=== PATIENT | female | born 1930 | race Caucasian/White ===

== ENCOUNTER → 2017-09-27 | Outpatient (CLI) | payer OTHER ==
[~2017-09-27] MED LIST: ATOR10TA PO; CALC-141 PO; CALCITONIN SPRAY; CLOP75TA52 PO; DILT120T3 PO; DILT180C53 PO; FERR325T18 PO; LEVO750T6 PO; LOSA50TA6 PO; NICO-485 TD; WARFARIN
== END | disposition home or self-care (01) ==
LOC: CFH 14:27
PROVIDERS: ATTEND Internal Medicine
DX: J90 Pleural effusion, not elsewhere classified (principal); J98.11 Atelectasis
CPT/HCPCS: 71046

== ENCOUNTER → 2017-12-04 | Outpatient (CLI) | payer MEDICARE, OTHER | LOC: CVU 13:14 | PROVIDERS: ATTEND Nurse Practitioner Family | DX: I65.23 Occlusion and stenosis of bilateral carotid arteries (principal); I77.4 Celiac artery compression syndrome; I70.0 Atherosclerosis of aorta; I70.202 Unspecified atherosclerosis of native arteries of extremities, left leg; E78.5 Hyperlipidemia, unspecified; I11.0 Hypertensive heart disease with heart failure; I50.9 Heart failure, unspecified; I48.91 Unspecified atrial fibrillation; Z89.511 Acquired absence of right leg below knee | CPT/HCPCS: 93880; 93926; 93978 ==

== ENCOUNTER 2018-08-29 15:50 | Inpatient (IN) | payer MEDICARE, OTHER ==
[~2018-08-29] VITALS: Ht 157.5 cm; Wt 52.1 kg
[~2018-08-29 15:50] MED LIST changes: -LOSA50TA6 PO; +LOSA50TA7 PO
[2018-08-29 16:45] LABS: BASOPHILS % (AUTO) 0 % (0-1); EOSINOPHILS # (AUTO) 0.08 x10^3/uL (0-0.4); EOSINOPHILS % (AUTO) 1 % (1-7); LYMPHOCYTES # (AUTO) 1.46 x10^3/uL (1-3.4); LYMPHOCYTES % (AUTO) 15 % (22-44); MD NO; MEAN CORPUSCULAR HEMOGLOBIN 28.9 pg (27.0-34.8); MEAN CORPUSCULAR HGB CONC 32.7 g/dL (32.4-35.8); MEAN CORPUSCULAR VOLUME 88.5 fL (80-100); MEAN PLATELET VOLUME 7.5 fL (7.4-10.4); MONOCYTES # (AUTO) 0.58 x10^3/uL (0.2-0.8); MONOCYTES % (AUTO) 6 % (2-9); NEUTROPHILS # (AUTO) 7.46 x10^3/uL (1.8-6.8); NEUTROPHILS % (AUTO) 78 % (42-75); PLATELET COUNT 535 x10^3/uL (130-400); RED BLOOD COUNT 4.67 x10^6/uL (3.82-5.3); RED CELL DISTRIBUTION WIDTH 17.4 % (9.6-15.2)
[2018-08-29 16:53] LABS: ALANINE AMINOTRANSFERASE 32 U/L (12-78); ALBUMIN 2.9 g/dL (3.4-5.0); ANION GAP 13 mmol/L (5-15); CALCIUM 8.8 mg/dL (8.5-10.1); CHLORIDE 107 mmol/L (98-107); CREATININE 1.18 mg/dL (0.55-1.02)
[2018-08-29 16:57] LABS: ALKALINE PHOSPHATASE 154 U/L (45-117); BILIRUBIN,TOTAL 0.7 mg/dL (0.2-1.0); TOTAL PROTEIN 8.2 g/dL (6.4-8.2); TROPONIN I < 0.015 ng/mL (0.000-0.045)
[2018-08-29] MEDS ORDERED: METO25TA35 PO (17:17)
[2018-08-29] MEDS ORDERED: CALC3.7S5 NS (17:17)
[2018-08-29] MEDS ORDERED: GABA300C10 PO (17:17)
[2018-08-29] MEDS ORDERED: LOSA25TA25 PO (17:17)
[2018-08-29] MEDS ORDERED: MULT-464 PO (17:17)
[2018-08-29] MEDS ORDERED: APIX5TAB PO (17:17)
[2018-08-29] MEDS ORDERED: METOCLOPRAMIDE 5 MG/ML, 2ML ONE (17:22)
[2018-08-29] MEDS: METOPROLOL 1 MG/ML, 5ML IVPush PRN ×2 (17:31→19:02)
[2018-08-29] MEDS ORDERED: LIDOCAINE-MPF 1%, 5ML ONE ×2 (18:04)
[2018-08-29] MEDS ORDERED: ACETAMINOPHEN 325 MG TABLET PO PRN (18:30)
[2018-08-29] MEDS ORDERED: DOCUSATE 100 MG CAPSULE PO PRN (18:30)
[2018-08-29] MEDS ORDERED: LABETALOL 5MG/ML, 20ML IVPush PRN (18:30)
[2018-08-29] MEDS ORDERED: ENALAPRILAT 1.25 MG/ML, 2ML IVPush PRN (18:30)
[2018-08-29] MEDS ORDERED: ONDANSETRON ODT 4 MG PO PRN (18:30)
[2018-08-29] MEDS ORDERED: BISACODYL 10 MG SUPP PR PRN (18:30)
[2018-08-29] MEDS ORDERED: ONDANSETRON 2MG/ML, 2ML IVPush PRN (18:30)
[2018-08-29] MEDS ORDERED: METOPROLOL 1 MG/ML, 5ML ONE (18:56)
[2018-08-29] MEDS ORDERED: SODIUM CHLORIDE FLUSH 10ML SYR IVF PRN (19:00)
[2018-08-29] MEDS: NICOTINE 7 MG/24 HR PATCH.TD24 TD SCH (21:30)
[2018-08-29 22:12] VITALS: BP 108/68
[2018-08-29] MEDS: METOPROLOL TARTRATE 25 MG TABLET PO SCH (22:22)
[2018-08-29] MEDS: GABAPENTIN 300 MG CAPSULE PO SCH (22:22)
[2018-08-29] MEDS: ENOXAPARIN 40 MG/0.4 ML SQ SCH (22:22)
[2018-08-29] MEDS: ATORVASTATIN 20 MG TABLET PO SCH (22:22)
[2018-08-30 01:10] VITALS: BP 93/61
[2018-08-30 05:22] LABS: ANION GAP 10 mmol/L (5-15); CALCIUM 8.1 mg/dL (8.5-10.1); CHLORIDE 110 mmol/L (98-107); CREATININE 1.03 mg/dL (0.55-1.02)
[2018-08-30 05:27] LABS: BASOPHILS # (AUTO) 0.03 x10^3/uL (0-0.1); BASOPHILS % (AUTO) 0 % (0-1); EOSINOPHILS % (AUTO) 1 % (1-7); HCT (SEDRATE) 32.7 % (34.6-47.8); LYMPHOCYTES # (AUTO) 1.36 x10^3/uL (1-3.4); LYMPHOCYTES % (AUTO) 15 % (22-44); MD NO; MEAN CORPUSCULAR HEMOGLOBIN 28.5 pg (27.0-34.8); MEAN CORPUSCULAR HGB CONC 32.6 g/dL (32.4-35.8); MEAN CORPUSCULAR VOLUME 87.4 fL (80-100); MEAN PLATELET VOLUME 7.5 fL (7.4-10.4); MONOCYTES # (AUTO) 0.95 x10^3/uL (0.2-0.8); MONOCYTES % (AUTO) 10 % (2-9); NEUTROPHILS # (AUTO) 6.67 x10^3/uL (1.8-6.8); NEUTROPHILS % (AUTO) 73 % (42-75); PLATELET COUNT 423 x10^3/uL (130-400); RED CELL DISTRIBUTION WIDTH 17.4 % (9.6-15.2)
[2018-08-30 05:33] LABS: INTERNATIONAL NORMALIZED RATIO 1.47 (0.93-1.1); PROTHROMBIN TIME 15.4 Seconds (9.6-11.5)
[2018-08-30 07:17] LABS: RAPID INFLUENZA A Negative (Negative); RAPID INFLUENZA B Negative (Negative)
[2018-08-30 07:35] VITALS: BP 103/53
[2018-08-30] MEDS ORDERED: LOSARTAN 25MG TABLET PO SCH (09:00)
[2018-08-30] MEDS: CALCITONIN NASAL 200 UNITS/0.09ML, 3.7ML NAS SCH (09:00)
[2018-08-30] MEDS: SENNA/DOCUSATE TABLET PO SCH (09:00)
[2018-08-30] MEDS ORDERED: LIDOCAINE-MPF 1%, 5ML ONE (11:19)
[2018-08-30] MEDS: MULTIVITAMIN 1 TABLET PO SCH (12:54)
[2018-08-30] MEDS: METOPROLOL TARTRATE 25 MG TABLET PO SCH ×2 (12:54→20:18)
[2018-08-30 13:00] VITALS: BP 117/64
[2018-08-30 19:31] VITALS: BP 111/74
[2018-08-30] MEDS: NICOTINE 7 MG/24 HR PATCH.TD24 TD SCH (20:18)
[2018-08-30] MEDS: GABAPENTIN 300 MG CAPSULE PO SCH (20:18)
[2018-08-30] MEDS: ATORVASTATIN 20 MG TABLET PO SCH (20:18)
[2018-08-30] MEDS: ENOXAPARIN 40 MG/0.4 ML SQ SCH (20:18)
[2018-08-31 02:34] VITALS: BP_SYST 76; BP_SYST 82; BP_DIAS 41; BP_DIAS 49
[2018-08-31] MEDS ORDERED: SODIUM CHLORIDE 0.9%, 500ML IVBOLUS ONE (03:00)
[2018-08-31 03:19] VITALS: BP 84/50
[2018-08-31 05:09] VITALS: BP 88/53
[2018-08-31 05:43] LABS: BASOPHILS # (AUTO) 0.07 x10^3/uL (0-0.1); BASOPHILS % (AUTO) 1 % (0-1); EOSINOPHILS # (AUTO) 0.03 x10^3/uL (0-0.4); EOSINOPHILS % (AUTO) 0 % (1-7); LYMPHOCYTES # (AUTO) 1.86 x10^3/uL (1-3.4); LYMPHOCYTES % (AUTO) 15 % (22-44); MD NO; MEAN CORPUSCULAR HEMOGLOBIN 28.7 pg (27.0-34.8); MEAN CORPUSCULAR HGB CONC 32.7 g/dL (32.4-35.8); MEAN CORPUSCULAR VOLUME 87.9 fL (80-100); MEAN PLATELET VOLUME 7.9 fL (7.4-10.4); MONOCYTES # (AUTO) 1.22 x10^3/uL (0.2-0.8); MONOCYTES % (AUTO) 10 % (2-9); NEUTROPHILS # (AUTO) 8.96 x10^3/uL (1.8-6.8); NEUTROPHILS % (AUTO) 74 % (42-75); PLATELET COUNT 420 x10^3/uL (130-400); RED BLOOD COUNT 3.35 x10^6/uL (3.82-5.3); RED CELL DISTRIBUTION WIDTH 17.4 % (9.6-15.2)
[2018-08-31 05:57] LABS: CALCIUM 7.9 mg/dL (8.5-10.1); CHLORIDE 112 mmol/L (98-107)
[2018-08-31 06:00] LABS: ALBUMIN 1.9 g/dL (3.4-5.0); ANION GAP 11 mmol/L (5-15); CREATININE 1.12 mg/dL (0.55-1.02)
[2018-08-31 07:15] VITALS: BP 88/53
[2018-08-31 08:29] VITALS: BP 103/68
[2018-08-31] MEDS: MULTIVITAMIN 1 TABLET PO SCH (08:30)
[2018-08-31] MEDS: SENNA/DOCUSATE TABLET PO SCH (08:30)
[2018-08-31] MEDS: CALCITONIN NASAL 200 UNITS/0.09ML, 3.7ML NAS SCH (08:31)
[2018-08-31] MEDS ORDERED: METOPROLOL TARTRATE 25 MG TABLET PO SCH (09:00)
[2018-08-31 13:08] LABS: OCCULT BLOOD NEGATIVE (NEGATIVE)
[2018-08-31] MEDS ORDERED: ENOXAPARIN 30 MG/0.3 ML SQ SCH (18:30)
== END 2018-08-31 15:00 | disposition home or self-care (01) | DRG 291 ==
LOC: ED 18:09 → EDIP 18:31 → 5SO 20:45 → DCLOUNGE 08-31 14:45
PROVIDERS: ADMIT Internal Medicine; ATTEND Internal Medicine
PROC: 0W993ZZ Drainage of Right Pleural Cavity, Percutaneous Approach (ICD-10-PCS; principal; 2018-08-30)
DX: I11.0 Hypertensive heart disease with heart failure (principal); J96.21 Acute and chronic respiratory failure with hypoxia; N17.9 Acute kidney failure, unspecified; E87.2 Acidosis; I50.32 Chronic diastolic (congestive) heart failure; F17.210 Nicotine dependence, cigarettes, uncomplicated; I25.10 Atherosclerotic heart disease of native coronary artery without angina pectoris; I48.2 Chronic atrial fibrillation; I73.9 Peripheral vascular disease, unspecified; J44.9 Chronic obstructive pulmonary disease, unspecified; M81.0 Age-related osteoporosis without current pathological fracture; Z80.9 Family history of malignant neoplasm, unspecified; Z82.3 Family history of stroke; Z89.419 Acquired absence of unspecified great toe; Z89.511 Acquired absence of right leg below knee; Z79.02 Long term (current) use of antithrombotics/antiplatelets; Z90.49 Acquired absence of other specified parts of digestive tract; Z98.41 Cataract extraction status, right eye; Z98.42 Cataract extraction status, left eye; Z88.8 Allergy status to other drugs, medicaments and biological substances
CPT/HCPCS: 32555; 36415; 71045; 80048; 80053; 82040; 82150; 82272; 82945; 83605; 83615; 83880; 83986; 84157; 84484; 85014; 85018; 85025; 85610; 85651; 85730; 87040; 87070; 87102; 87205; 87400; 88112; 88305; 89051; 93005; 93306; 96374; 96375; 99291; G0378; J1650; J7040

== ENCOUNTER 2018-11-07 14:50 | Inpatient (IN) | payer MEDICARE, OTHER ==
[~2018-11-07] VITALS: Ht 157.5 cm; Wt 51.8 kg
[~2018-11-07 14:50] MED LIST changes: +APIX5TAB PO; +CALC3.7S5 NS; +GABA300C10 PO; +LOSA25TA25 PO; +LOSA50TA14 PO; -LOSA50TA7 PO; +METO25TA35 PO; +MULT-464 PO
--- NOTE | 2018-11-07 15:10 | NUR ---
DR ZUNIGA BS FOR EXAM. PER DAUGHTER, PT HAS SOB, HAS BEEN SLEEPING MORE THAN NORMAL, SIMILAR SX 2 MONTHS AGO
[2018-11-07] MEDS ORDERED: ATOR40TA PO (15:22)
--- NOTE | 2018-11-07 15:29 | NUR ---
LABS DRAWN, INCLUDING CULTURES.
[2018-11-07] MEDS ORDERED: METOPROLOL 1 MG/ML, 5ML IVPush ONE (15:30)
--- NOTE | 2018-11-07 15:44 | NUR ---
XR AT BS
[2018-11-07] MEDS ORDERED: METOPROLOL 1 MG/ML, 5ML ONE (15:47)
[2018-11-07 15:54] LABS: ALANINE AMINOTRANSFERASE 19 U/L (12-78); ALBUMIN 2.7 g/dL (3.4-5.0); ANION GAP 11 mmol/L (5-15); CHLORIDE 107 mmol/L (98-107); CREATININE 1.33 mg/dL (0.55-1.02)
[2018-11-07 15:58] LABS: ALKALINE PHOSPHATASE 126 U/L (45-117); BILIRUBIN,TOTAL 1.1 mg/dL (0.2-1.0); TOTAL PROTEIN 7.5 g/dL (6.4-8.2); TROPONIN I 0.031 ng/mL (0.000-0.045)
--- NOTE | 2018-11-07 16:05 | NUR ---
BEAR WARMER GIVEN TO PT. O2 2LNC APPLIED FOR LOW SATURATION; WILL TITRATE.
--- NOTE | 2018-11-07 16:13 | NUR ---
LOPRESSOR GIVEN PER EMAR. DR GREGG IN ROOM. PT'S HR VARYIN-140, A-FIB.
[2018-11-07 16:14] LABS: MEAN CORPUSCULAR HEMOGLOBIN 25.5 pg (27.0-34.8); MEAN CORPUSCULAR HGB CONC 30.4 g/dL (32.4-35.8); MEAN CORPUSCULAR VOLUME 83.9 fL (80-100); MEAN PLATELET VOLUME 8.2 fL (7.4-10.4); PLATELET COUNT 322 x10^3/uL (130-400); RED BLOOD COUNT 5.36 x10^6/uL (3.82-5.3); RED CELL DISTRIBUTION WIDTH 25.4 % (9.6-15.2)
[2018-11-07] MEDS ORDERED: FUROSEMIDE 40 MG/4 ML IV ONE (16:30)
[2018-11-07] MEDS ORDERED: AZITHROMYCIN 500 MG in SODIUM CHLORIDE 0.9% 250 ML IV ONE (16:30)
[2018-11-07] MEDS ORDERED: CEFTRIAXONE PMX 1GM/50ML 50 ML IV ONE (16:30)
[2018-11-07 16:46] LABS: BASOPHILS # (AUTO) 0.04 x10^3/uL (0-0.1); BASOPHILS % (AUTO) 1 % (0-1); EOSINOPHILS # (AUTO) 0.06 x10^3/uL (0-0.4); EOSINOPHILS % (AUTO) 1 % (1-7); LYMPHOCYTES # (AUTO) 1.56 x10^3/uL (1-3.4); LYMPHOCYTES % (AUTO) 23 % (22-44); MD MORPH REVIEW ONLY; MONOCYTES # (AUTO) 0.56 x10^3/uL (0.2-0.8); MONOCYTES % (AUTO) 8 % (2-9); NEUTROPHILS # (AUTO) 4.56 x10^3/uL (1.8-6.8); NEUTROPHILS % (AUTO) 67 % (42-75)
[2018-11-07 16:47] LABS: ANISOCYTOSIS 2+
[2018-11-07 16:48] LABS: MICROCYTOSIS 1+
[2018-11-07 16:49] LABS: OVALOCYTES 1+; POLYCHROMASIA 1+
[2018-11-07 16:50] LABS: ECHINOCYTES 1+
[2018-11-07 16:51] LABS: <PLATELET ESTIMATE> ADEQUATE; <PLT MORPHOLOGY> NORMAL PLT MORPH
--- NOTE | 2018-11-07 16:51 | NUR ---
PT REPORT TO BREAK RN: INES Armijo PT CARE TRANSFERRED
[2018-11-07] MEDS ORDERED: FUROSEMIDE 40 MG/4 ML ONE (16:58)
[2018-11-07] MEDS ORDERED: CEFTRIAXONE PMX 1GM/50ML 50 ML ONE (16:58)
--- NOTE | 2018-11-07 17:15 | NUR ---
LUNCH BREAK NOTE: PT RESTING IN BED IN NAD. ANTIBIOTICS STARTED AFTERT BLOOD CULTRURES X 2 WERE DRAWN.
--- NOTE | 2018-11-07 17:27 | NUR ---
PT REPORT FROM [facility]. PT CARE TO BE ASSUMED.
[2018-11-07] MEDS ORDERED: BISACODYL 10 MG SUPP PR PRN (17:30)
[2018-11-07] MEDS ORDERED: ENALAPRILAT 1.25 MG/ML, 2ML IVPush PRN (17:30)
[2018-11-07] MEDS ORDERED: ACETAMINOPHEN 325 MG TABLET PO PRN (17:30)
[2018-11-07] MEDS ORDERED: hydrALAzine 20 MG/ML, 1ML IVPush PRN (17:30)
[2018-11-07] MEDS ORDERED: DOCUSATE 100 MG CAPSULE PO PRN (17:30)
[2018-11-07] MEDS ORDERED: DIGOXIN 0.25 MG/ML, 2ML IVPush ONE (17:30)
[2018-11-07] MEDS ORDERED: ONDANSETRON ODT 4 MG PO PRN (17:30)
--- NOTE | 2018-11-07 18:23 | NUR ---
VOIDED INTO BEDPAN. SPECIMEN COLLECTED.
--- NOTE | 2018-11-07 19:29 | NUR ---
NEW IV LOCK INITIATED: LT WRIST 22G. ZITHROMAX HUNG, INFUSING AT 250ML/HR VIA PUMP. RT IV SITE WILL BE DC'D
--- NOTE | 2018-11-07 19:38 | NUR ---
CALLED RECEIVING UNIT - [facility] NOT CURRENTLY AVAILABLE.
--- NOTE | 2018-11-07 19:48 | NUR ---
PT REPORT TO [facility] EL[facility]AB[facility] FOR ROOM 502. WILL CONSULT ERP RE: DIG ORDER.
[2018-11-07] MEDS ORDERED: DIGOXIN 0.25 MG/ML, 2ML ONE (19:52)
[2018-11-07 20:15] VITALS: BP 110/75
[2018-11-07] MEDS: ONDANSETRON 2MG/ML, 2ML IVPush PRN (20:23)
[2018-11-07] MEDS ORDERED: PLEASE ENTER HEIGHT AND WEIGHT MC SCH (20:30)
[2018-11-07] MEDS ORDERED: METOPROLOL TARTRATE 25 MG TABLET PO SCH (21:00)
[2018-11-07 21:59] LABS: TROPONIN I 0.036 ng/mL (0.000-0.045)
[2018-11-07] MEDS: APIXABAN 2.5 MG TABLET PO SCH (22:23)
[2018-11-07] MEDS: GABAPENTIN 300 MG CAPSULE PO SCH (22:23)
[2018-11-07] MEDS: METOPROLOL TARTRATE 25 MG TABLET PO SCH (22:24)
[2018-11-08] VITALS (11 sets, daily range): BP systolic 79–125; BP diastolic 42–67
[2018-11-08 03:53] LABS: MEAN CORPUSCULAR HGB CONC 31.2 g/dL (32.4-35.8); MEAN CORPUSCULAR VOLUME 83.3 fL (80-100); MEAN PLATELET VOLUME 8.2 fL (7.4-10.4); PLATELET COUNT 259 x10^3/uL (130-400); RED BLOOD COUNT 4.59 x10^6/uL (3.82-5.3); RED CELL DISTRIBUTION WIDTH 24.4 % (9.6-15.2)
[2018-11-08 03:57] LABS: ALBUMIN 2.3 g/dL (3.4-5.0); ANION GAP 7 mmol/L (5-15); CALCIUM 8.5 mg/dL (8.5-10.1); CHLORIDE 110 mmol/L (98-107)
[2018-11-08 04:03] LABS: ALANINE AMINOTRANSFERASE 14 U/L (12-78); ALKALINE PHOSPHATASE 94 U/L (45-117); BILIRUBIN,TOTAL 0.7 mg/dL (0.2-1.0); CHOL/HDL RATIO 2.1; CHOLESTEROL, TOTAL 77 mg/dL (140-239); CREATININE 1.13 mg/dL (0.55-1.02); HDL CHOL % 48 % (28-40); HDL CHOLESTEROL (DIRECT) 37 mg/dL (40-60); LDL CHOLESTEROL,CALCULATED 26 mg/dL (54-169); LDL/HDL RATIO 0.7 (0.5-3.0); TOTAL PROTEIN 6.2 g/dL (6.4-8.2); TRIGLYCERIDES 69 mg/dL (50-200); TROPONIN I 0.048 ng/mL (0.000-0.045); VLDL CHOLESTEROL 14 mg/dL (0-25)
[2018-11-08 04:50] LABS: BASOPHILS # (AUTO) 0.02 x10^3/uL (0-0.1); BASOPHILS % (AUTO) 0 % (0-1); EOSINOPHILS # (AUTO) 0.02 x10^3/uL (0-0.4); EOSINOPHILS % (AUTO) 0 % (1-7); LYMPHOCYTES # (AUTO) 1.06 x10^3/uL (1-3.4); LYMPHOCYTES % (AUTO) 20 % (22-44); MD MORPH REVIEW ONLY; MONOCYTES # (AUTO) 0.43 x10^3/uL (0.2-0.8); MONOCYTES % (AUTO) 8 % (2-9); NEUTROPHILS # (AUTO) 3.77 x10^3/uL (1.8-6.8); NEUTROPHILS % (AUTO) 71 % (42-75)
[2018-11-08 04:52] LABS: ANISOCYTOSIS 2+; ECHINOCYTES 1+; MICROCYTOSIS 1+; OVALOCYTES 1+; POLYCHROMASIA 1+
[2018-11-08 04:53] LABS: <PLATELET ESTIMATE> ADEQUATE; <PLT MORPHOLOGY> NORMAL PLT MORPH
[2018-11-08] MEDS: SENNA/DOCUSATE TABLET PO SCH (08:48)
[2018-11-08] MEDS: METOPROLOL TARTRATE 25 MG TABLET PO SCH ×3 (08:50→21:00)
[2018-11-08] MEDS: MULTIVITAMINS/MINERALS TABLET PO SCH (08:50)
[2018-11-08] MEDS: CLOPIDOGREL 75 MG TABLET PO SCH ×2 (08:51→09:00)
[2018-11-08] MEDS: APIXABAN 2.5 MG TABLET PO SCH (09:00)
[2018-11-08] MEDS ORDERED: LIDOCAINE-MPF 1%, 5ML ONE (09:05)
[2018-11-08] MEDS: ONDANSETRON 2MG/ML, 2ML IVPush PRN (10:38)
[2018-11-08] MEDS ORDERED: MORPHINE SULFATE 4 MG/ML, 1ML IVPush PRN (11:00)
[2018-11-08] MEDS: CALCITONIN NASAL 200 UNITS/0.09ML, 3.7ML NAS SCH (11:26)
[2018-11-08] MEDS: AZITHROMYCIN 500 MG in SODIUM CHLORIDE 0.9% 250 ML IV SCH (12:37)
[2018-11-08] MEDS: CEFTRIAXONE PMX 1GM/50ML 50 ML IV SCH (13:51)
[2018-11-08 15:21] LABS: INTERNATIONAL NORMALIZED RATIO 1.27 (0.93-1.1); PROTHROMBIN TIME 13.3 Seconds (9.6-11.5)
[2018-11-08] MEDS: ATORVASTATIN 40 MG TABLET PO SCH (20:35)
[2018-11-08] MEDS: GABAPENTIN 300 MG CAPSULE PO SCH (20:35)
[2018-11-08] MEDS ORDERED: SODIUM CHLORIDE 0.9%, 500ML IVBOLUS ONE (22:00)
[2018-11-08] MEDS ORDERED: SODIUM CHLORIDE 0.9%, 250ML IVBOLUS ONE (22:30)
[2018-11-09 00:46] VITALS: BP 108/68
[2018-11-09 03:14] LABS: ANION GAP 6 mmol/L (5-15); CALCIUM 7.8 mg/dL (8.5-10.1); CHLORIDE 112 mmol/L (98-107)
[2018-11-09 03:17] LABS: ALANINE AMINOTRANSFERASE 11 U/L (12-78); ALKALINE PHOSPHATASE 90 U/L (45-117); BILIRUBIN,TOTAL 0.6 mg/dL (0.2-1.0); CREATININE 1.19 mg/dL (0.55-1.02); TOTAL PROTEIN 5.4 g/dL (6.4-8.2)
[2018-11-09 03:18] LABS: MEAN CORPUSCULAR HEMOGLOBIN 25.4 pg (27.0-34.8); MEAN CORPUSCULAR VOLUME 84.8 fL (80-100); MEAN PLATELET VOLUME 8.1 fL (7.4-10.4); PLATELET COUNT 255 x10^3/uL (130-400); RED CELL DISTRIBUTION WIDTH 24.1 % (9.6-15.2)
[2018-11-09 03:20] LABS: MEAN CORPUSCULAR HGB CONC 29.9 g/dL (32.4-35.8)
[2018-11-09 03:43] LABS: BASOPHILS # (AUTO) 0.07 x10^3/uL (0-0.1); BASOPHILS % (AUTO) 1 % (0-1); EOSINOPHILS # (AUTO) 0.03 x10^3/uL (0-0.4); EOSINOPHILS % (AUTO) 0 % (1-7); LYMPHOCYTES # (AUTO) 1.15 x10^3/uL (1-3.4); LYMPHOCYTES % (AUTO) 15 % (22-44); MD SCAN; MONOCYTES # (AUTO) 0.74 x10^3/uL (0.2-0.8); MONOCYTES % (AUTO) 10 % (2-9); NEUTROPHILS # (AUTO) 5.68 x10^3/uL (1.8-6.8); NEUTROPHILS % (AUTO) 74 % (42-75)
[2018-11-09 06:26] VITALS: BP 124/66
[2018-11-09] MEDS: CALCITONIN NASAL 200 UNITS/0.09ML, 3.7ML NAS SCH (08:42)
[2018-11-09] MEDS: FUROSEMIDE 40 MG/4 ML IV SCH (08:43)
[2018-11-09] MEDS: CLOPIDOGREL 75 MG TABLET PO SCH (08:44)
[2018-11-09] MEDS: SENNA/DOCUSATE TABLET PO SCH (08:44)
[2018-11-09] MEDS: MULTIVITAMINS/MINERALS TABLET PO SCH (08:44)
[2018-11-09] MEDS: METOPROLOL TARTRATE 25 MG TABLET PO SCH ×3 (08:45→20:32)
[2018-11-09] MEDS: AZITHROMYCIN 500 MG in SODIUM CHLORIDE 0.9% 250 ML IV SCH (11:41)
[2018-11-09 13:24] VITALS: BP 101/63
[2018-11-09] MEDS: CEFTRIAXONE PMX 1GM/50ML 50 ML IV SCH (13:28)
[2018-11-09 19:04] VITALS: BP 112/60
[2018-11-09] MEDS: GABAPENTIN 300 MG CAPSULE PO SCH (20:32)
[2018-11-09] MEDS: ATORVASTATIN 40 MG TABLET PO SCH (20:32)
[2018-11-10 00:18] VITALS: BP 124/58
[2018-11-10 05:21] LABS: CHLORIDE 111 mmol/L (98-107)
[2018-11-10 05:37] LABS: ALANINE AMINOTRANSFERASE 13 U/L (12-78); ALBUMIN 2.2 g/dL (3.4-5.0); ALKALINE PHOSPHATASE 85 U/L (45-117); ANION GAP 3 mmol/L (5-15); BILIRUBIN,TOTAL 0.9 mg/dL (0.2-1.0); CALCIUM 8.1 mg/dL (8.5-10.1); TOTAL PROTEIN 6.2 g/dL (6.4-8.2)
[2018-11-10 07:26] VITALS: BP 135/73
[2018-11-10] MEDS: FUROSEMIDE 40 MG/4 ML IV SCH ×3 (08:32→21:07)
[2018-11-10] MEDS: METOPROLOL TARTRATE 25 MG TABLET PO SCH ×3 (08:32→21:08)
[2018-11-10] MEDS: CALCITONIN NASAL 200 UNITS/0.09ML, 3.7ML NAS SCH (08:32)
[2018-11-10] MEDS: SENNA/DOCUSATE TABLET PO SCH (08:33)
[2018-11-10] MEDS: MULTIVITAMINS/MINERALS TABLET PO SCH (08:33)
[2018-11-10] MEDS: CLOPIDOGREL 75 MG TABLET PO SCH (08:41)
[2018-11-10] MEDS: AMOXICILLIN/CLAV 875-125MG TABLET PO SCH ×2 (08:46→21:08)
[2018-11-10] MEDS: DOXYCYCLINE 100MG TABLET PO SCH ×2 (08:46→21:08)
[2018-11-10 12:25] VITALS: BP 102/53
[2018-11-10 19:34] VITALS: BP 100/60
[2018-11-10] MEDS: ATORVASTATIN 40 MG TABLET PO SCH (21:08)
[2018-11-10] MEDS: GABAPENTIN 300 MG CAPSULE PO SCH (21:08)
[2018-11-11 02:32] VITALS: BP 117/60
[2018-11-11 05:41] LABS: CHLORIDE 106 mmol/L (98-107)
[2018-11-11 05:48] LABS: ALANINE AMINOTRANSFERASE 15 U/L (12-78); ALBUMIN 2.1 g/dL (3.4-5.0); ALKALINE PHOSPHATASE 94 U/L (45-117); ANION GAP 3 mmol/L (5-15); BILIRUBIN,TOTAL 0.7 mg/dL (0.2-1.0); CALCIUM 8.1 mg/dL (8.5-10.1); CREATININE 0.98 mg/dL (0.55-1.02); TOTAL PROTEIN 6.1 g/dL (6.4-8.2)
[2018-11-11 06:34] VITALS: BP 104/70
[2018-11-11 06:40] LABS: CLOSTRIDIUM DIFFICILE ANTIGEN NEGATIVE; CLOSTRIDIUM DIFFICILE TOXIN NEGATIVE (Negative)
[2018-11-11] MEDS: SENNA/DOCUSATE TABLET PO SCH (09:00)
[2018-11-11] MEDS: FUROSEMIDE 40 MG/4 ML IV SCH ×3 (09:26→20:15)
[2018-11-11] MEDS: MULTIVITAMINS/MINERALS TABLET PO SCH (09:27)
[2018-11-11] MEDS: AMOXICILLIN/CLAV 875-125MG TABLET PO SCH ×2 (09:27→20:15)
[2018-11-11] MEDS: DOXYCYCLINE 100MG TABLET PO SCH ×2 (09:27→20:15)
[2018-11-11] MEDS: CLOPIDOGREL 75 MG TABLET PO SCH (09:27)
[2018-11-11] MEDS: METOPROLOL TARTRATE 25 MG TABLET PO SCH ×3 (09:27→20:15)
[2018-11-11] MEDS: CALCITONIN NASAL 200 UNITS/0.09ML, 3.7ML NAS SCH (09:32)
[2018-11-11 12:15] VITALS: BP 106/57
[2018-11-11] MEDS: GABAPENTIN 300 MG CAPSULE PO SCH (20:16)
[2018-11-11] MEDS: ATORVASTATIN 40 MG TABLET PO SCH (20:16)
[2018-11-11 20:48] VITALS: BP 119/64
[2018-11-12 02:23] VITALS: BP 110/62
[2018-11-12 05:44] LABS: ANION GAP 4 mmol/L (5-15); CALCIUM 8.1 mg/dL (8.5-10.1); CHLORIDE 100 mmol/L (98-107)
[2018-11-12 05:47] LABS: ALANINE AMINOTRANSFERASE 19 U/L (12-78); ALKALINE PHOSPHATASE 92 U/L (45-117); BILIRUBIN,TOTAL 0.7 mg/dL (0.2-1.0); CREATININE 0.94 mg/dL (0.55-1.02); TOTAL PROTEIN 6.2 g/dL (6.4-8.2)
[2018-11-12 06:25] LABS: MEAN CORPUSCULAR HEMOGLOBIN 25.6 pg (27.0-34.8); MEAN CORPUSCULAR HGB CONC 30.2 g/dL (32.4-35.8); MEAN CORPUSCULAR VOLUME 84.7 fL (80-100); MEAN PLATELET VOLUME 8.3 fL (7.4-10.4); PLATELET COUNT 277 x10^3/uL (130-400); RED BLOOD COUNT 4.66 x10^6/uL (3.82-5.3); RED CELL DISTRIBUTION WIDTH 24.6 % (9.6-15.2)
[2018-11-12 06:55] LABS: BASOPHILS # (AUTO) 0.03 x10^3/uL (0-0.1); BASOPHILS % (AUTO) 0 % (0-1); EOSINOPHILS % (AUTO) 0 % (1-7); LYMPHOCYTES # (AUTO) 0.85 x10^3/uL (1-3.4); LYMPHOCYTES % (AUTO) 11 % (22-44); MD SCAN; MONOCYTES # (AUTO) 0.71 x10^3/uL (0.2-0.8); MONOCYTES % (AUTO) 10 % (2-9); NEUTROPHILS # (AUTO) 5.89 x10^3/uL (1.8-6.8); NEUTROPHILS % (AUTO) 79 % (42-75)
[2018-11-12] MEDS ORDERED: POTASSIUM CHLORIDE 20 MEQ TAB.ER.PRT PO SCH (08:00)
[2018-11-12] MEDS: CLOPIDOGREL 75 MG TABLET PO SCH (08:25)
[2018-11-12] MEDS: FUROSEMIDE 40 MG/4 ML IV SCH (08:25)
[2018-11-12] MEDS: CALCITONIN NASAL 200 UNITS/0.09ML, 3.7ML NAS SCH (08:25)
[2018-11-12] MEDS: GUAIFENESIN 200 MG TABLET PO SCH ×4 (08:26→20:54)
[2018-11-12] MEDS: METOPROLOL TARTRATE 25 MG TABLET PO SCH ×3 (08:26→20:55)
[2018-11-12] MEDS: SENNA/DOCUSATE TABLET PO SCH (08:27)
[2018-11-12] MEDS: MULTIVITAMINS/MINERALS TABLET PO SCH (08:27)
[2018-11-12] MEDS: AMOXICILLIN/CLAV 875-125MG TABLET PO SCH (08:31)
[2018-11-12 09:59] VITALS: BP 106/56
[2018-11-12 13:23] VITALS: BP 119/75
[2018-11-12] MEDS: ALBUMIN HUMAN 25% 100 ML IV SCH (15:48)
[2018-11-12] MEDS: POTASSIUM CHLORIDE 20 MEQ TAB.ER.PRT PO SCH ×2 (17:04→20:55)
[2018-11-12 18:04] LABS: ANION GAP 5 mmol/L (5-15); CALCIUM 8.5 mg/dL (8.5-10.1); CHLORIDE 99 mmol/L (98-107); CREATININE 0.97 mg/dL (0.55-1.02)
[2018-11-12 20:32] VITALS: BP 132/65
[2018-11-12 20:53] VITALS: BP 119/69
[2018-11-12] MEDS: ATORVASTATIN 40 MG TABLET PO SCH (20:54)
[2018-11-12] MEDS: GABAPENTIN 300 MG CAPSULE PO SCH (20:55)
[2018-11-12] MEDS ORDERED: FUROSEMIDE 40 MG/4 ML IV SCH (21:00)
[2018-11-13 01:37] VITALS: BP 136/80
[2018-11-13 05:05] LABS: CHLORIDE 105 mmol/L (98-107)
[2018-11-13 05:14] LABS: ALANINE AMINOTRANSFERASE 29 U/L (12-78); ALBUMIN 2.2 g/dL (3.4-5.0); ALKALINE PHOSPHATASE 95 U/L (45-117); ANION GAP 4 mmol/L (5-15); BILIRUBIN,TOTAL 0.9 mg/dL (0.2-1.0); CALCIUM 8.5 mg/dL (8.5-10.1); CREATININE 0.91 mg/dL (0.55-1.02); TOTAL PROTEIN 6.6 g/dL (6.4-8.2)
[2018-11-13] MEDS: GUAIFENESIN 200 MG TABLET PO SCH ×4 (05:49→20:36)
[2018-11-13 07:00] VITALS: BP 121/77
[2018-11-13] MEDS: ALBUMIN HUMAN 25% 100 ML IV SCH (09:47)
[2018-11-13] MEDS: CALCITONIN NASAL 200 UNITS/0.09ML, 3.7ML NAS SCH (09:47)
[2018-11-13] MEDS: CLOPIDOGREL 75 MG TABLET PO SCH (09:47)
[2018-11-13] MEDS: MULTIVITAMINS/MINERALS TABLET PO SCH (09:48)
[2018-11-13] MEDS: METOPROLOL TARTRATE 25 MG TABLET PO SCH ×3 (09:48→20:36)
[2018-11-13] MEDS: SENNA/DOCUSATE TABLET PO SCH (09:48)
[2018-11-13 11:40] VITALS: BP 127/75
[2018-11-13 13:06] VITALS: BP 103/63
[2018-11-13 17:29] VITALS: BP 111/65
[2018-11-13 20:06] VITALS: BP 109/65
[2018-11-13] MEDS: ATORVASTATIN 40 MG TABLET PO SCH (20:35)
[2018-11-13] MEDS: GABAPENTIN 300 MG CAPSULE PO SCH (20:36)
[2018-11-13] MEDS: APIXABAN 2.5 MG TABLET PO SCH (20:38)
[2018-11-14 00:55] VITALS: BP 108/53
[2018-11-14] MEDS: GUAIFENESIN 200 MG TABLET PO SCH ×4 (05:05→21:59)
[2018-11-14 05:51] LABS: ALBUMIN 2.5 g/dL (3.4-5.0); CALCIUM 8.6 mg/dL (8.5-10.1); CHLORIDE 108 mmol/L (98-107)
[2018-11-14 05:55] LABS: ALANINE AMINOTRANSFERASE 33 U/L (12-78); ALKALINE PHOSPHATASE 81 U/L (45-117); ANION GAP 5 mmol/L (5-15); BILIRUBIN,TOTAL 0.9 mg/dL (0.2-1.0); CREATININE 0.83 mg/dL (0.55-1.02); TOTAL PROTEIN 6.5 g/dL (6.4-8.2)
[2018-11-14 07:04] VITALS: BP 104/59
[2018-11-14] MEDS: SENNA/DOCUSATE TABLET PO SCH (09:00)
[2018-11-14] MEDS: POTASSIUM CHLORIDE 10 MEQ TABLET.ER PO SCH (09:08)
[2018-11-14] MEDS: APIXABAN 2.5 MG TABLET PO SCH ×2 (09:08→22:00)
[2018-11-14] MEDS: MULTIVITAMINS/MINERALS TABLET PO SCH (09:08)
[2018-11-14] MEDS: CALCITONIN NASAL 200 UNITS/0.09ML, 3.7ML NAS SCH (09:08)
[2018-11-14] MEDS: METOPROLOL TARTRATE 25 MG TABLET PO SCH ×3 (09:09→22:00)
[2018-11-14] MEDS: CLOPIDOGREL 75 MG TABLET PO SCH (09:09)
[2018-11-14] MEDS: FUROSEMIDE 40 MG TABLET PO SCH (09:09)
[2018-11-14] MEDS ORDERED: GUAI200T3 PO (12:20)
[2018-11-14] MEDS ORDERED: APIX2.5T PO (12:20)
[2018-11-14] MEDS ORDERED: FURO40TA6 PO (12:20)
[2018-11-14] MEDS ORDERED: POTA10TA5 PO (12:20)
[2018-11-14] MEDS ORDERED: METO25TA35 PO (12:20)
[2018-11-14 15:26] VITALS: BP 101/63
[2018-11-14 19:49] VITALS: BP 110/60
[2018-11-14] MEDS: GABAPENTIN 300 MG CAPSULE PO SCH (21:59)
[2018-11-14] MEDS: ATORVASTATIN 40 MG TABLET PO SCH (22:00)
[2018-11-15 01:23] VITALS: BP 117/68
[2018-11-15] MEDS: GUAIFENESIN 200 MG TABLET PO SCH ×2 (05:43→09:36)
[2018-11-15 06:43] VITALS: BP 114/65
[2018-11-15] MEDS: APIXABAN 2.5 MG TABLET PO SCH (09:35)
[2018-11-15] MEDS: CLOPIDOGREL 75 MG TABLET PO SCH (09:35)
[2018-11-15] MEDS: METOPROLOL TARTRATE 25 MG TABLET PO SCH (09:35)
[2018-11-15] MEDS: SENNA/DOCUSATE TABLET PO SCH (09:35)
[2018-11-15] MEDS: FUROSEMIDE 40 MG TABLET PO SCH (09:35)
[2018-11-15] MEDS: POTASSIUM CHLORIDE 10 MEQ TABLET.ER PO SCH (09:35)
[2018-11-15] MEDS: MULTIVITAMINS/MINERALS TABLET PO SCH (09:36)
[2018-11-15] MEDS: CALCITONIN NASAL 200 UNITS/0.09ML, 3.7ML NAS SCH (11:03)
[2018-11-15 14:11] VITALS: BP 118/69
== END 2018-11-15 15:46 | disposition home health service (06) | DRG 682 ==
LOC: ED 16:16 → EDIP 16:17 → ED 16:54 → 5SO 20:12 → 4EST 11-14 08:47
PROVIDERS: ADMIT Internal Medicine; ATTEND Internal Medicine
PROC: 0W993ZZ Drainage of Right Pleural Cavity, Percutaneous Approach (ICD-10-PCS; principal; 2018-11-08)
DX: N17.9 Acute kidney failure, unspecified (principal); J96.01 Acute respiratory failure with hypoxia; E43 Unspecified severe protein-calorie malnutrition; I50.33 Acute on chronic diastolic (congestive) heart failure; J96.21 Acute and chronic respiratory failure with hypoxia; I13.0 Hypertensive heart and chronic kidney disease with heart failure and stage 1 through stage 4 chronic kidney disease, or unspecified chronic kidney disease; D68.59 Other primary thrombophilia; E87.2 Acidosis; E87.4 Mixed disorder of acid-base balance; J44.0 Chronic obstructive pulmonary disease with (acute) lower respiratory infection; J93.83 Other pneumothorax; I48.91 Unspecified atrial fibrillation; I25.10 Atherosclerotic heart disease of native coronary artery without angina pectoris; I73.9 Peripheral vascular disease, unspecified; J20.9 Acute bronchitis, unspecified; M81.0 Age-related osteoporosis without current pathological fracture; N18.9 Chronic kidney disease, unspecified; Z79.01 Long term (current) use of anticoagulants; Z79.899 Other long term (current) drug therapy; Z80.9 Family history of malignant neoplasm, unspecified; Z82.3 Family history of stroke; Z87.891 Personal history of nicotine dependence; Z89.511 Acquired absence of right leg below knee; Z89.512 Acquired absence of left leg below knee; Z68.20 Body mass index [BMI] 20.0-20.9, adult
CPT/HCPCS: 32555; 36415; 71045; 71250; 74176; 76700; 80048; 80053; 80061; 83605; 83735; 83880; 84100; 84145; 84439; 84443; 84484; 85014; 85018; 85025; 85610; 85730; 87040; 87070; 87205; 87324; 93005; 93308; 93321; 93325; 96374; 96375; 99285; G0378; J0456; J0696; J1940; J2405; P9047; J1160; J7040; J7050